=== PATIENT | male | born 1980 | race Caucasian/White ===

== ENCOUNTER 2022-03-08 13:38 | Emergency (ER) | payer BC, SELFPAY ==
[2022-03-08 13:46] VITALS: BP 140/89; PULSE 86; RESP 18; TEMP 36.7; O2SAT 100; BMI 22.6
--- NOTE | 2022-03-08 15:36 | ED_ITS ---
HPI - General Adult General Chief complaint: Unspecified Complaint, Adult Stated complaint: Nerve pain and weakness Time Seen by Provider: 03/08/22 15:04 History of Present Illness HPI narrative: This 42-year-old male comes in requesting a blood test if possible for checking for [place] virus. He states that he is having recurrent small individual lesions various places in his body that happened after having underlying pain in that area. He states that it started up on the left side of his face and it was thought to be shingles. It did spread across the midline and since then he has recovered from the initial findings but has various individual isolated lesions on his skin that are associated with pain. He states that he has been to a neurologist and he has been to a customer contact sales associate. He has not found any sufficient answer to what is going on. He states that he did take Valtrex with some temporary and partial relief in the past. He has had lab tests done and states that his sed rate and C reactive protein were negative. He also thinks that he had an DOROTA which was not positive for some kind of autoimmune condition. Related Data Home Medications Medication Instructions Recorded Confirmed hydroxyzine HCl 10 mg tablet mg 03/08/22 Previous Rx's Medication Instructions Recorded methylprednisolone 4 mg tablets in See Rx Instructions PO .COMPLEX 03/08/22 a dose pack (Medrol (Bill)) #21 ea valacyclovir 1 gram tablet 1,000 mg PO BID #20 tabs 03/08/22 (Valtrex) Allergies Allergy/AdvReac Type Severity Reaction Status Date / Time cephalexin Allergy Verified 03/08/22 13:52 Review of Systems Status of ROS: Reports: 10 or more systems reviewed and unremarkable except as noted in History and below Narrative: Constitutional: No fevers, no weight gain or loss. Eyes: No discharge. No vision changes. HENT: No congestion, no sore throat, no ear pain. Cardiovascular: No chest pain, no palpitations. Respiratory: No shortness of breath, no wheezes, no cough. Gastrointestinal: No abdominal pain, no vomiting, no diarrhea. Genitourinary: No dysuria, no hematuria. Musculoskeletal: Normal range of motion. Skin: Individual lesions with underlying pain and tingling occurring in various places of his body for several months. Neurological: No dizziness, weakness, sensory change, speech change. Endo/Heme/Allergies: No bruising or bleeding. No polydipsia. Pysch: no suicidality, no anxiety, no insomnia. All other systems reviewed and are negative. Exam Narrative: Exam Narrative: Constitutional: Well-developed, well-nourished, no acute distress. HEENT: Normocephalic, atraumatic. Neck: Normal range of motion. Nontender. Supple. Heart: Intact distal pulses. Lungs: No chest discomfort. No wheezes, rhonchi, or rales. Abdomen: Nontender. Back: Normal range of motion. Extremities: Normal range of motion. No injury. Skin: Intact. Warm. No erythema or pallor. Isolated individual non pustular and nonvesicular lesions on his arms and legs. Neurologic: No altered sensation. No weakness. Alert and oriented. Psychiatric: No suicidality. No anxiety or depression. No insomnia. Nursing notes and vitals signs are reviewed. Const: Vital Signs, click to edit/add: Vital Signs - 24 hr 03/08/22 13:46 Temperature 98.1 F Pulse Rate [Right Pulse Oximeter] 86 Respiratory Rate 18 Blood Pressure [Ri ght Upper Arm] 140/89 H Pulse Oximetry 100 Oxygen Delivery Me thod Room Air Course Vital Signs Vital signs: Initial Vital Signs Temperature 98.1 F 03/08/22 13:46 Temperature Source Temporal Artery Scan 03/08/22 13:46 Pulse Rate 86 03/08/22 13:46 Respiratory Rate 18 03/08/22 13:46 Blood Pressure 140/89 H 03/08/22 13:46 Blood Pressure Mean 106 03/08/22 13:46 Blood Pressure Position Sitting 03/08/22 13:46 Pulse Oximetry 100 03/08/22 13:46 Oxygen Delivery Method 03/08/22 13:46 Vital Signs Temperature 98.1 F 03/08/22 13:46 Pulse Rate 86 03/08/22 13:46 Respiratory Rate 18 03/08/22 13:46 Blood Pressure 140/89 H 03/08/22 13:46 Pulse Oximetry 100 03/08/22 13:46 Oxygen Delivery Method 03/08/22 13:46 Temperature 98.1 F 03/08/22 13:46 Pulse Rate 86 03/08/22 13:46 Respiratory Rate 18 03/08/22 13:46 Blood Pressure 140/89 H 03/08/22 13:46 Pulse Oximetry 100 03/08/22 13:46 Oxygen Delivery Method 03/08/22 13:46 Medical Decision Making MDM Narrative Medical decision making narrative: This patient is essentially requesting a PCR test for [place] virus if possible. I did check our lab options and did not find this specific test. The patient declined any lab test therefore. He is not presenting with any kind of emergent condition but is seeking some help for his symptoms which he has not found satisfactory conclusions with his visits to specialists. I did state there would be little harm in trying Valtrex and a steroid which may provide some relief and if so give a clue as to what may be causing his symptoms. He agrees to this plan. He does have a follow-up appointment with a specialist in the near future. Discharge Plan Discharge Clinical Impression: Dermatitis Patient Disposition: Home, Self-Care Condition: Stable Additional Instructions: Take medication as prescribed. Follow up with physician as scheduled. Return if worsening. Prescriptions: New valacyclovir [Valtrex] 1 gram tablet 1,000 mg PO BID Qty: 20 2RF methylprednisolone [Medrol (Bill)] 4 mg tablets,dose pack See Rx Instructions .ROUTE .COMPLEX Qty: 21 0RF Rx Instructions: orally per package directions No Action hydroxyzine HCl 10 mg tablet Stand Alone Forms: [employer] Info Instructions
--- OUTSIDE RECORDS SUMMARY | 2022-03-08 15:44 | XMS_ITS | Encounter Summary ---
:1980 Author Organization [place] Address [address] [place] [address]. [place] [address] Care Team Providers Name Role Phone Camilo Andres MD, Nick Go Primary Care Provider [phone] Reason for Visit Reason Onset Date Comments Call Back 10/26/2021 Encounter Details Date Type Department Care Team Description 10/26/2021 Telephone [facility] Infectious Mar shGirma MD Call Back Disease Clinic [id number] [place] [address] [phone] Social History Tobacco Use Types Packs/Day Years Used Date Never Assessed Sex Assigned at Date Recorded Not on file COVID-19 Exposure Response Date Recorded In the last 10 days, have you been in contact Unable to asse ss 10/26/2021 10:18 AM CDT with someone who was confirmed or suspected to have Coronavirus/COVID-19? documented as of this encounter Miscellaneous Notes Telephone Encounter - Girma Hummel MD - 11/02/2021 11:47 AM CDT I reviewed the chart of Mr. Sam Foss regarding his concern for recurrent Herpes Zoster (which is otherwise known as Shingles). There is a note in his chart from Dr. Hardy, an Infectious Disease physician in the [facility] system. I am happy to see the patient and give him my opinion. Based on Dr. Hardy's note, it is very likelythat I will reach the same conclusion that she did, that his symptoms are not actually caused by recurrent Shingles. However, I will make an independent assessment and hear him out. I will also consider alternative diagnoses. It is up to the patient if he would like to proceed with this appt or not. He should be prepared that I may say the same thing as Dr. Hardy, but I am happy to review his case with him if he would likeanother opinion. Girma Hummel MD, MS Infectious Disease Physician Telephone Encounter - Walt Stock - 10/26/2021 10:29 AM CDT [facility] Phone Message May a detailed message be left on voicemail: yes Reason for Call: Other: Patient called to schedule appointment for Herpes Virus. Per patient has seen 10-11 providers in the past for this diagnosis and wants a call back to confirm that Dr Hummel will be able to provide him the care for the virus before going ahead with the appointment. Please call back and advise, thank you. Action Taken: Message routed to: Other: ID Travel Screening: Not Applicable documented in this encounter Plan of Treatment Not on filedocumented as of this encounter Visit Diagnoses Not on filedocumented in this encounter Care Teams Corn Cooker Relationship Specialty Start Date End Date Nick Page Jr., MD PCP - General 08/09/[address] [place] [id number] documented as of this encounter
--- OUTSIDE RECORDS SUMMARY | 2022-03-08 15:44 | XMS_ITS | Encounter Summary ---
:1980 Author Organization [place] Address [address] [place] [address]. [place] [address] Care Team Providers Name Role Phone Camilo Andres MD, Nick Go Primary Care Provider [phone] Reason for Visit Reason Onset Date Comments *-*INCOMING RECORDS*-* 12/11/2021 Encounter Details Date Type Department Care Team Description 12/11/2021 PRE VISIT [facility] Girma Hummel, *-*IN COMING RECORDS*-* Infectious Disease MD Clinic [address] [phone] Social History Tobacco Use Types Packs/Day Years Used Date Never Smoker Smokeless Tobacco: Former User Alcohol Use Standard Drinks/Week Comments Not Currently 0 (1 standard drink = 0.6 oz pure alcoho l) Sex Assigned at Date Recorded Not on file documented as of this encounter Miscellaneous Notes Telephone Encounter - Melanie Kennedy - 12/04/2021 2:46 PM CDT RECORDS RECEIVED FROM: DATE RECEIVED: 12.10.2021 NOTES (Gather within 2 years) STATUS DETAILS OFFICE NOTE from referring provider OFFICE NOTE from other specialist Care Everywhere 10.30.2021 Carla Candelario MD?? [facility] DISCHARGE SUMMARY from hospital DISCHARGE REPORT from the ER LABS (any labs) Care Everywhere MEDICATION LIST Care Everywhere IMAGING (NEED IMAGES AND REPORTS) Osteomyelitis: Foot imaging Liver Abscess: Abdominal imaging Other (anything related to diagnoses documented in this encounter Plan of Treatment Not on filedocumented as of this encounter Visit Diagnoses Not on filedocumented in this encounter Care Teams Apparel Stock Checker Relationship Specialty Start Date End Date Nick Page Jr., MD PCP - General 08/09/[address] [place] [id number] documented as of this encounter
--- OUTSIDE RECORDS SUMMARY | 2022-03-08 15:44 | XMS_ITS | Clinical Summary ---
:1980 Author Organization [place] Address [address] [place] [address]. [place] [address] Care Team Providers Name Role Phone Camilo Andres MD, Nick Go Primary Care Provider [phone] Girma Hummel MD Unavailable Allergies Active Allergy Reactions Severity Noted Date Comments Cephalexin Hives 06/10/2017 Medications Medication Sig Dispensed Refills Start Date End Date Status hydrOXYzine (ATARAX) Take 10-20 mg by 0 07/17/2021 Active 10 MG tablet mouth ketoconazole (NIZORAL) APPLY 1-2X DAILY 0 12/04/2021 Active 2 % external cream TO AFFECTED TOENAILS Encounters Date Type Specialty Care Team Description 12/11/2021 Office Visit Infectious Diseases Girma Hummel, Shakeel cern about MD infectious dise ase without diagnos is (Primary Dx) 12/11/2021 Travel 12/11/2021 PRE VISIT Infectious Diseases Girma Hummel, *-* INCOMING RECORDS*-* from Last 3 Months Social History Tobacco Use Types Packs/Day Years Used Date Never Smoker Smokeless Tobacco: Former User Alcohol Use Standard Drinks/Week Comments Not Currently 0 (1 standard drink = 0.6 oz pure alcoho l) Sex Assigned at Date Recorded Not on file Last Filed Vital Signs Vital Sign Reading Time Taken Comments Blood Pressure 124/81 12/11/2021 3:04 PM CDT Pulse 72 12/11/2021 3:04 PM CDT Temperature - - Respiratory Rate - - Oxygen Saturation 96% 12/11/2021 3:04 PM CDT Inhaled Oxygen Concentration - - Weight 73.8 kg (162 lb 12.8 oz) 12/11/2021 3:04 PM CDT Height - - Body Mass Index - - Plan of Treatment Health Maintenance Due Date Last Done Comments ADVANCE CARE PLANNING 1980 ANNUAL REVIEW OF HM ORDERS 1980 PREVENTIVE CARE VISIT 1980 COVID-19 Vaccine (#1) 1980 HIV SCREENING 02/27/1996 HEPATITIS C SCREENING 1999 DTAP/TDAP/TD IMMUNIZATION (1 - 2006 Tdap) LIPID 02/27/2016 PHQ-2 (once per calendar year) 2021 INFLUENZA VACCINE (#1) 2022 HEPATITIS B IMMUNIZATION Aged Out No long er eligible based on patient's age to complete this topic IPV IMMUNIZATION Aged Out No longer eligi ble based on patient's age to complete this topic MENINGITIS IMMUNIZATION Aged Out No longe r eligible based on patient's age to complete this topic Pneumococcal Vaccine: Pediatrics Aged Out No longer eligible based on (0 to 5 Years) and At-Risk patie nt's age to complete this Patients (6 to 64 Years) topic Insurance Payer Benefit Plan / Subscriber ID Effective Dates Phone Addre ss Type Group BLUE PLUS BLUE PLUS [id number] 2018-Present [phone] [id number] [address]MO [address] [place] [address] Care Teams Virtual Recruiter Relationship Specialty Start Date End Date Nick Page Jr., MD PCP - General 08/09/08 [facility] [place], [place] [address] Girma Hummel MD Assigned Infectious Disease 12/22/21 [address] [facility] Provider [place], [place] [id number]
--- OUTSIDE RECORDS SUMMARY | 2022-03-08 15:44 | XMS_ITS | Encounter Summary ---
:1980 Author Organization [place] Address [address] [place] [address]. [place] [address] Care Team Providers Name Role Phone Camilo Andres MD, Nick Go Primary Care Provider [phone] Reason for Visit Reason Comments Consult Herpes Encounter Details Date Type Department Care Team Description 12/11/2021 Office Visit [facility] Girma Hummel Conce rn about Infectious Disease infectious disease Clinic [address] without diagnosis [address] [place] [address] (Primary Dx) [place] [phone] Social History Tobacco Use Types Packs/Day Years Used Date Never Smoker Smokeless Tobacco: Former User Alcohol Use Standard Drinks/Week Comments Not Currently 0 (1 standard drink = 0.6 oz pure alcoho l) Sex Assigned at Date Recorded Not on file COVID-19 Exposure Response Date Recorded In the last 10 days, have you been in contact with No / Unsu re 12/11/2021 2:50 PM CDT someone who was confirmed or suspected to have Coronavirus/COVID-19? documented as of this encounter Last Filed Vital Signs Vital Sign Reading Time Taken Comments Blood Pressure 124/81 12/11/2021 3:04 PM CDT Pulse 72 12/11/2021 3:04 PM CDT Temperature - - Respiratory Rate - - Oxygen Saturation 96% 12/11/2021 3:04 PM CDT Inhaled Oxygen Concentration - - Weight 73.8 kg (162 lb 12.8 oz) 12/11/2021 3:04 PM CDT Height - - Body Mass Index - - documented in this encounter Progress Notes Girma Hummel MD - 12/11/2021 3:00 PM CDT INFECTIOUS DISEASE CLINIC NOTE - in person REASON FOR VISIT: New patient, self referred. Concerns that infection is causing his various symptoms. The patient is most concerned about neurologic symptoms. HISTORY OF PRESENT ILLNESS: Sam Foss is a 41 yo man without any chronic illnesses. He was recently seen by Dr. Felecia Hardy for Infectious Disease consultation in the [facility] on 09/18/2021. He is seeking another Infectious Disease opinion today regarding an underlying infectious cause of his current symptoms. Mr. Foss tells me that he first noted tingling and burning around his jaw and lip about 4 years ago. He never saw an actual cold sore, but seemed to have these symptoms periodically and especially around times of stress. He tried topical Abreva and thought it helped some. He saw his PCP 06/10/2017 (note in Care Everywhere) who thought it sounded like a prodrome of herpes labialis albeit without the sore. He tried some valacyclovir and it seemed to help. This continued to happen occasionally over the years, but it was not too troublesome to Mr. Foss. He tells me that over 3 years, he maybe did 3courses of the valacyclovir. Now for the last 6 months or so, Mr. Foss feels this is much worse. He relates this to having COVID three times this pandemic, he thinks likely alpha, delta, and omicron variants. The last COVID infection was during May 2022, and he feels that a lot of his chronic symptoms started then. He recalls a burning rash and feeling like he was being electrocuted while sleeping. He has seen small pinkto red bumps scattered in many places on his body, arms, legs, trunk. VZV, HSV, and bacterial cultures done from a lesion 09/21/21 were all negative. The patient has seen Dr. Jahaira Hopson at [facility] in [place], [place]. . I do not have access to these records. Now an ongoing tingling and burning sensation is felt throughout the body. At times these sensationsare associated with weakness, and this is what is really worrying the patient. He is very worried that he has Multiple Sclerosis. He has been seen at [facility] by Dr. Brayan Cummins. I do not have access to these records, but the patient tells me that he had MRI of his cervical spine and his brain,as well as EMG, and these were all normal. He is worried that the MS cannot yet be seen on MRI, but will progress. Mr. Foss had some blood testing done that he shows me. It was done through a non-allopathic medicine site. Some tests came back for EBV and HHV-7. He also had a positive EBV Early Ag IgG Ab this 06/2021 done at [facility] (visible in Care Everywhere). No other EBV serology or PCR testing is seen. He has read that EBV can be associated with MS, so he thinks this is likely what is happening to him. The patient took some ivermectin in the past 3 days. He asks me if I think he should have IVIG therapy. I have reviewed and updated the patient's Past Medical History, Family History, and Social History. CURRENT MEDICATIONS: Current Outpatient Medications Medication ??? hydrOXYzine (ATARAX) 10 MG tablet ??? ketoconazole (NIZORAL) 2 % external cream No current facility-administered medications for this visit. ALLERGIES: Allergies Allergen Reactions ??? Cephalexin Hives REVIEW OF SYSTEMS: A full 12-point review of systems was obtained, pertinent positives and negativesas above. Physical Examination: VITAL SIGNS: BP 124/81 (BP Location: Right arm, Patient Position: Sitting, Cuff Size: Adult Regular) Pulse 72 Wt 73.8 kg (162 lb 12.8 oz) SpO2 96% GENERAL: No acute distress HEENT: No icterus or injection. Oropharynx moist and clear without lesions or exudate. NECK: Supple and nontender LYMPH: Some shotty lymphadenopathy felt in cervical, axillary and inguinal chains. Patient is thin and nodes are fairly easy to feel. Anteriorly along his neck on left side, there are two larger nodes next to each other, still freely moveable, not tender to the patient. LUNGS: Clear to ausculation bilaterally without any increased work of breathing HEART: Regular rate and rhythm and no murmur, gallop or rub ABDOMEN: Normoactive bowel sounds, soft, nontender, nondistended, no hepatosplenomegaly. EXTREMITIES: Warm and well perfused without clubbing, cyanosis, or edema SKIN: Scattered random small ~0.5cm pink to red nodules without an erythematous base. Patient pointsthem out on arms, legs, and trunk. NEURO: Awake, alert, no focal neurologic deficits. PSYCH: Affect normal. Speech fluent and appropriate. LABORATORY DATA: Reviewed. IMAGING: None available to me. ASSESSMENT: (Z71.1) Concern about infectious disease without diagnosis (primary encounter diagnosis) I counseled the patient extensively today. We discussed that I do not think it is any herpes virus that is causing his current symptoms. Not VZV, HSV, HHV-7, or EBV or any other herpes virus. I would not expect the neurologic symptoms he is describing of tingling, burning, and weakness throughout his entire body. I do not know why he is experiencing these symptoms. It is not an entity that I have learned about occurring after COVID infection, but the patient does correlate these symptoms with onset during his last COVID infection and continuing/progressing since. The bumps that the patient shows me are non-specific small pink or red solid nodules randomly scattered in various places around the body. They are pruritic. They do not have an erythematous base. Theyare not vesicular. This rash is not consistent with VZV or HSV. I thought actually about bed bugs and hypersensitivity. I asked the patient if his had any similar bumps. They do share a bed, and he thinks she has had a few occasionally, but not many. I expressed my concern to the patient regarding his recent use of ivermectin, and I discouraged him from seeking any medication or treatment without prescription and provider oversight. PLAN: - I plan to reach out to Dr. Hopson (Dermatology) and Dr. Cummins (Neurology) to seek their thoughts on Mr. Foss's case The patient asked if referrals within the [facility] [facility] system would be possible for Neurology. With normal MRIs and EMG, I am not sure what else Neurology would have to offer, but I will ask Dr. Cummins if he thinks this would be appropriate. - Patient asked for more EBV testing. I am hesitant to order EBV serology and PCR testing. As I shared with the patient, if serology and even PCR are positive, it would be very difficult to interpret these results in this otherwise healthy man. EBV reactivation is possible, and we could see a positive EBV Early Ag IgG Ab and a positive EBV PCR on blood if reactivation had occurred in the setting of other illness and/or stressor. However, I would not expect EBV reactivation to cause the symptoms thatMr. Foss is describing. I will be in touch with the patient after I am able to discuss the case with Dr. Hopson and Dr. Cummins. Girma Hummel MD, MS Infectious Disease I spent 65 minutes in the care of the patient on the day of service. 55 minutes in the room for history, examination, and counseling. 10 minutes on chart review and care coordination. documented in this encounter Nursing Notes Juan Miguel Wilson MA - 12/11/2021 3:00 PM CDT Chief Complaint Patient presents with ??? Consult Herpes Blood pressure 124/81, pulse 72, weight 73.8 kg (162 lb 12.8 oz), SpO2 96 %. Juan Miguel Wilson on 12/11/2021 at 3:07 PM documented in this encounter Plan of Treatment Not on filedocumented as of this encounter Visit Diagnoses Diagnosis Concern about infectious disease without diagnosis - Primary Person with feared complaint in whom no diagnosis was made documented in this encounter Care Teams Parts Designer Relationship Specialty Start Date End Date Nick Page Jr., MD PCP - General 08/09/[address] [place] [phone] documented as of this encounter
--- OUTSIDE RECORDS SUMMARY | 2022-03-08 15:44 | XMS_ITS | Clinical Summary ---
:1980 Author Organization [employer] [facility] [place] [address] Care Team Providers Name Role Phone Carla Candelario MD Primary Care Provider [phone] Allergies Active Allergy Reactions Severity Noted Date Comments Cephalexin Hives 06/10/2017 Medications Medication Sig Dispensed Refills Start Date End Date Status acyclovir (ZOVIRAX) 800 Take 1 Tablet 25 Tablet 1 07/17/2021 Active mg tabletIndications: (800 mg) by History of shingles mouth 5 times daily. Use as needed for flares x 5 days. hydrOXYzine HCL Take 1-2 Tablets 180 Tablet 1 07/17/2021 Active (ATARAX) 10 mg (10-20 mg) by tabletIndications: mouth 4 times Environmental allergies daily if needed (allergy symptoms). 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 Muscle spasm of back 01/15/2019 Encounters Date Type Specialty Care Team Description 02/13/2022 Orders Only Scanner <No scans attac hed> from Last 3 Months Family History Medical History Relation Name Comments Allergies Father mold Asthma Father Eczema Father Rheum arthritis Paternal Grandmother Crohn's disease Paternal Uncle Eczema Son Relation Name Status Comments Father Alive Mother Alive Paternal Grandmother Paternal Uncle Son Social History Tobacco Use Types Packs/Day Years Used Date Never Smoker Smokeless Tobacco: Never Used Tobacco Cessation: Counseling Given: Yes Alcohol Use Standard Drinks/Week Comments Yes 0 (1 standard drink = 0.6 oz pure alcoho l) Sex Assigned at Date Recorded Not on file Obstetrics History Last Filed Vital Signs Vital Sign Reading Time Taken Comments Blood Pressure 134/86 10/30/2021 1:29 PM CDT Pulse 74 10/30/2021 1:29 PM CDT Temperature 36.4 ??C (97.5 ??F) 06/06/2021 1:10 PM BREAKER MECHANIC Respiratory Rate 16 10/30/2021 1:29 PM CDT Oxygen Saturation 98% 06/06/2021 1:10 PM BREAKER MECHANIC Inhaled Oxygen Concentration - - Weight 73.8 kg (162 lb 11.2 oz) 10/30/2021 1:29 PM CDT Height 182.9 cm (6') 06/12/2021 10:48 AM BREAKER MECHANIC Body Mass Index 22.07 06/12/2021 10:48 AM BREAKER MECHANIC Plan of Treatment Health Maintenance Due Date Last Done Comments COVID-19 vaccine series (#1) 1980 Tdap 02/27/1992 Tetanus booster 2001 Lipids for age 35-44 02/27/2016 Influenza for age 9-49 01/31/2022 BMI (ht and wt on same day) for 06/12/2022 06/12/2021, 06/02, age 18+ 03/12/2019, Additional history exists Depression screening for age 12+ 10/30/2022 10/30/2021, , 06/10/2017 Hepatitis C screening for age Completed 06/19/2021 18-79 Procedures Procedure Name Priority Date/Time Associated Diagnosis Comme nts SCAN-ELECTROMYOGRAM 02/13/2022 12:00 AM R esults for this EMG CDT procedure are i n the results section. from Last 3 Months Results SCAN-ELECTROMYOGRAM EMG (02/13/2022 12:00 AM CDT) Narrative This result has an attachment that is no t available. Scanner OTHER from Last 3 Months Insurance Payer Benefit Plan / Subscriber ID Effective Dates Phone Addre ss Type Group [employer] [place] [employer] [id number] 2018-Present [address] [address] [place] [address] Care Teams Cone Baker Machine Relationship Specialty Start Date End Date Carla Candelario MD PCP - General Family Practice 10/30/[address] [place] [address] [place] [id number]
--- OUTSIDE RECORDS SUMMARY | 2022-03-08 15:44 | XMS_ITS | Encounter Summary ---
:1980 Author Organization [facility] Address [address] [place] [address]. [place] [address] Care Team Providers Name Role Phone Camilo Andres MD, Nick Go Primary Care Provider Encounter Details Date Type Department Care Team Description 12/11/2021 Travel Social History Tobacco Use Types Packs/Day Years [...] have Coronavirus/COVID-19? documented as of this encounter Plan of Treatment Not on filedocumented as of this encounter Visit Diagnoses Not on filedocumented in this encounter Care Teams Chronic Disease Manager Relationship Specialty Start Date End Date Nick Page Jr., MD PCP - General 08/09/[address] [place] [id number] documented as of this encounter
--- OUTSIDE RECORDS SUMMARY | 2022-03-08 15:44 | XMS_ITS | Encounter Summary ---
:1980 Author Organization [facility] Address [facility] [place] [address] Care Team Providers Name Role Phone Camilo Andres MD, Nick Go Primary Care Provider [phone] Encounter Details Date Type Department Care Team Description 10/26/2021 Travel Social History Tobacco Use Types Packs/Day [...] on filedocumented in this encounter Care Teams Ski Edge Painter Relationship Specialty Start Date End Date Nick Page Jr., MD PCP - General 08/09/08 [facility] [place], [place] [id number] documented as of this encounter
--- OUTSIDE RECORDS SUMMARY | 2022-03-08 15:45 | XMS_ITS | Encounter Summary ---
:1980 Author Organization [facility] Address [address] [place] [address] Care Team Providers Name Role Phone Elsewhere, Pcp Primary Care Provider Unavailable Reason for Visit Reason Comments Communication Needs med refill on hydroxyz ine 10mg and valacyclovir. Sent to [facility] in [place]. Markell queen was to be seen 08/29/[address] Hanks had to leave. Encounter Details Date Type Department Care Team Description 08/29/2017 Clinical Department of Janie Hanks Communication (Needs Communication Family MedicineDarien med refill on [facility], [address] hydroxyzi ne 10mg and in [facility], [address] valacyclovir. Sent [place], [place] to [facility] [address] [place] [address] [facility] in [place]. [place], [place] [phone] [place] [phone] (Fax) seen 08/29/2017 and [phone] Dr Hanks had to leave. ) Social History Tobacco Use Types Packs/Day Years Used Date Smoking Tobacco: Never Smokeless Tobacco: Never Alcohol Use Standard Drinks/Week Comments No 0 (1 standard drink = 0.6 oz pure alcoho l) Sex Assigned at Date Recorded Not on file documented as of this encounter Miscellaneous Notes Telephone Encounter - Tiara Hernández M.D. - 08/29/2017 4:52 PM CDT I have sent a prescription of hydroxyzine 10 mg to her pharmacy([facility]) Tiara Hernández MD Telephone Encounter - Adry Vang RJennyNJenny - 08/29/2017 3:27 PM CDT Please fill the hydroxyzine for Carlinflower's patient, Since he isn't sure of the dose he will have his teresa dr. Fill the valcyclovir. Telephone Encounter - Sharon Hood - 08/29/2017 2:40 PM CDT Needs med refill on hydroxyzine 10mg and valacyclovir. Sent to [facility] in [place]. Patient was to be seen 08/29/[address] Hanks had to leave. documented in this encounter Plan of Treatment Not on filedocumented as of this encounter Visit Diagnoses Not on filedocumented in this encounter Care Teams Tractor Operator Battery Relationship Specialty Start Date End Date Elsewhere, Pcp PCP - General Family Medicine 06/30/17 documented as of this encounter
--- OUTSIDE RECORDS SUMMARY | 2022-03-08 15:45 | XMS_ITS | Encounter Summary ---
:1980 Author Organization [facility] Address [address] [place] [address] Care Team Providers Name Role Phone Elsewhere, Pcp Primary Care Provider Unavailable Encounter Details Date Type Department Care Team Description 06/30/2017 Abstract Department of [facility] Internal Provider , [facility] Medicine in [place], [place] [address] [place] [address] Social History Tobacco Use Types Packs/Day Years Used Date Smoking Tobacco: Never Smokeless Tobacco: Never Alcohol Use Standard Drinks/Week Comments No 0 (1 standard drink = 0.6 oz pure alcoho l) Sex Assigned at Date Recorded Not on file documented as of this encounter Plan of Treatment Not on filedocumented as of this encounter Visit Diagnoses Not on filedocumented in this encounter Care Teams Community Health Representative Relationship Specialty Start Date End Date Elsewhere, Pcp PCP - General Family Medicine 06/30/17 documented as of this encounter
--- OUTSIDE RECORDS SUMMARY | 2022-03-08 15:45 | XMS_ITS | Encounter Summary ---
:1980 Author Organization [facility] Address [address] [place] [address] Care Team Providers Name Role Phone Elsewhere, Pcp Primary Care Provider Unavailable Encounter Details Date Type Department Care Team Description 07/31/2018 Clinical Communication Department of [facility], Pcp Medicine, [facility], in [place], [place] [address], [place] [address] [facility] [phone] Social History Tobacco Use Types Packs/Day Years Used Date Smoking Tobacco: Never Smokeless Tobacco: Never Alcohol Use Standard Drinks/Week Comments No 0 (1 standard drink = 0.6 oz pure alcoho l) Sex Assigned at Date Recorded Not on file documented as of this encounter Miscellaneous Notes Telephone Encounter - Kayleigh Freeman, L.P.N. - 07/31/2018 10:05 AM CST Attempt to contact patient. No answer, left message to return call to clinic. UI DEVELOPER Telephone Encounter - Nguyen Cordero - 07/31/2018 8:33 AM CST Reason for Communication: Patient is returning call Current Can Nursing/Provider leave a detailed message: yes Did the patient refuse triage through Nurse line? (for symptom based concerns)na Action Needed: Please call patient back Name of Medication (if relevant): Valtrex UI DEVELOPER documented in this encounter Plan of Treatment Not on filedocumented as of this encounter Visit Diagnoses Not on filedocumented in this encounter Care Teams Line And Frame Poler Relationship Specialty Start Date End Date Elsewhere, Pcp PCP - General Family Medicine 06/30/17 documented as of this encounter
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
--- OUTSIDE RECORDS SUMMARY | 2022-03-08 15:45 | XMS_ITS | Encounter Summary ---
:1980 Author Organization [facility] Address [address] [place] [address] Care Team Providers Name Role Phone Elsewhere, Pcp Primary Care Provider Unavailable Reason for Visit Reason Comments Weakness - Generalized Encounter Details Date Type Department Care Team Description 12/14/2021 Emergency [facility] Kirstin, Alcon E, Headac he Unspecified (Primary Dx); Emergency Department M.D., M.P.H. Pain Generalized; [address] [facility] [address] [place] [phone] Social History Tobacco Use Types Packs/Day Years Used Date Smoking Tobacco: Never Smokeless Tobacco: Never Alcohol Use Standard Drinks/Week Comments No 0 (1 standard drink = 0.6 oz pure alcoho l) Sex Assigned at Date Recorded Not on file documented as of this encounter Last Filed Vital Signs Vital Sign Reading Time Taken Comments Blood Pressure 147/75 12/14/2021 3:58 PM CDT Pulse 76 12/14/2021 3:58 PM CDT Temperature 36.7 ??C (98.1 ??F) 12/14/2021 11:30 AM CDT Respiratory Rate 18 12/14/2021 11:30 AM CDT Oxygen Saturation 98% 12/14/2021 3:58 PM CDT Inhaled Oxygen Concentration - - Weight 75.9 kg (167 lb 5.3 oz) 12/14/2021 11:27 AM CDT Height - - Body Mass Index 22.66 09/12/2017 1:31 PM CDT documented in this encounter Discharge Instructions Discharge InstructionsMadsen, Alcon E, M.D., M.P.H. - 12/14/2021 3:44 PM CDT You were seen for a number symptoms that have been ongoing over the past 6-7 months with acute worsening including headache as well as radiating burning pain initially in year left upper and lower extremities and now also on your right side. You report difficulty ambulating mainly due to left-sided weakness. Your neurological exam is normal and fortunately the head CT is also normal. All your laboratory testing is reassuring here. I recommend that you follow-up with your primary care physician and the care team that you have recently seen. As we have agreed I will send a referral to our general internal medicine physicians. Theywill review your records and contact you. As we have discussed I cannot tell you if and when you will get an appointment with medicine. AttachmentsThe following attachments cannot be sent through Care Everywhere.Pain Without a Known Cause (Czech)documented in this encounter Medications at Time of Discharge Medication Sig Dispensed Refills Start Date End Date omega-3 fatty Take 2 g by mouth 2 0 acids-fish oil (two) times a day. 300-1,000 mg capsule UNABLE TO FIND Take by mouth 2 (two) 0 times a day. Med Name: Ultraflamex - contains tumeric and alexander - two scoops twice daily UNABLE TO FIND Take by mouth as needed. 0 Med Name: dehyst documented as of this encounter ED Notes Alcon Fulton M.D., M.P.H. - 12/14/2021 11:54 AM CDT SUBJECTIVE CHIEF COMPLAINT/REASON FOR VISIT Weakness - Generalized HISTORY OF PRESENT ILLNESS Patient presents for evaluation of tightness of his muscles in predominantly the left side but now also starting in the right side. He has difficulty ambulating and is be experiencing zinging seen painfrom his back and down his extremities. No fevers or skin rashes. REVIEW OF SYSTEMS Constitutional: Positive for fatigue. Negative for chills and fever. HENT: Negative for trouble swallowing. Eyes: Negative for visual disturbance. Respiratory: Negative for cough and shortness of breath. Cardiovascular: Negative for chest pain, palpitations and leg swelling. Gastrointestinal: Negative for abdominal pain, diarrhea, nausea and vomiting. Genitourinary: Negative for dysuria and frequency. Musculoskeletal: Positive for back pain, gait problem, myalgias and extremity pain. Negative for joint swelling. Skin: Positive for rash. Neurological: Positive for weakness. Negative for numbness, headaches and loss of balance. Psychiatric/Behavioral: Negative for behavioral problems, substance abuse and suicidal ideas. OBJECTIVE Initial Vitals Temperature Pulse Rate Heart Rate Resp Rate Blood Pressure SpO2 12/14/21 1130 12/14/21 1130 -- 12/14/21 1130 12/14/21 1130 12/14/21 1130 36.7 ??C 106 18 148/80 99 % Pain Score 12/14/21 1131 6 PHYSICAL EXAMINATION Constitutional: Nursing note and vitals reviewed. No distress. HENT: Mouth/Throat: Mucous membranes are moist. No posterior oropharyngeal erythema. Neck: Neck supple. Cardiovascular: Normal rate and regular rhythm. Capillary refill: takes less than 3 seconds Pulmonary/Chest: Breath sounds normal. Abdominal: Soft. exhibits no distension. There is no abdominal tenderness. There is no rebound and no guarding. Musculoskeletal: General: No tenderness or edema. Cervical back: Neck supple. Neurological: Alert. He has normal sensation, normal strength and cranial nerves II through XII intact. Normal speech. Skin: Skin is warm and intact. Psychiatric: He has a normal mood and affect. Behavior is normal. ASSESSMENT/PLAN IMPRESSION AND PLAN Unclear etiology of zinging pain and tightness of muscles. Has undergone extensive workup elsewhere.Continues having neuropathic symptoms that initially were thought to be related to possible shingles. He has had significant symptoms that are very concerning to him and has seen neurology (normal MRI,EMGs, vasculitis/autoimmune workup, etc upon review of labs, notes). Was seen by dermatology, who biopsied one of the lesions and did not think it was shingles. Was also seen by infectious disease elsewhere, who wondered if this wasn't foliculitis and recommended we stop prescribing acyclovir without a biopsy showing zoster. His neurological exam here is normal as it has been during prior examinations elsewhere. He is ambulating with a slight limp. Workup here within tired normal labs including inflammatory markers. Urine normal. Head CT without acute findings. Were still no clear etiology his symptoms. Is not requiring inpatient workup for his symptoms. He is somewhat frustrated by this as it is very concerning to him. He is a chiropractor and ordered labs on himself. I am not familiar with the testing type Neural Zoomer Plus test with [facility]. These came back positive for Demylenating antigens- anti-MAG, anti-CV2, IGG and IgA positive for EBNA, EBV and HHV-7. I reviewed previous medical records including Lab results, EKG images/reports, Radiology images/report and Documentation from previous visits. I personally reviewed the lab result(s) and my interpretation is normal. I personally reviewed the radiology image(s) and reviewed the radiology report(s). The Radiology exam interpretation(s) is/are normal. ED Course as of 12/25/217 FriDec 14, [address] Head without IV Contrast FINDINGS: No acute intracranial abnormalities. No evidence of mass, infarct or hemorrhage. Paranasal sinuses, mastoid air cells and middle ear cavities are clear. 6 mm right frontal convexity calcification may represent a small exostosis or calcified meningioma. IMPRESSION: Normal CT of the head. 1534 Basic Metabolic Panel: Potassium, P 3.8 Sodium, P 140 Chloride, P 102 Bicarbonate, P 26 Anion Gap, P 12 BUN (Blood Urea Nitrogen), P 13 Creatinine, P 0.80 eGFR-Black/ >90 eGFR Non-Black/ >90 Calcium, Total, P 9.8 Glucose, P 96 Normal BMP 1535 CBC with Differential, Blood(!): Hemoglobin 14.9 Hematocrit 43.8 Erythrocytes 4.69 MCV 93.4 RBC Distrib Width 11.1(!) Platelet Count 204 White Blood Cell Count 7.0 Neutrophils 4.57 Lymphocytes 1.59 Monocytes 0.40 Eosinophils 0.33 Basophils 0.08 1535 C-Reactive Protein (CRP), S: <3.0 1535 Sedimentation Rate, B: 5 1535 Dipstick, POCT, Urine: Glucose, POCT, U Negative Ketone, POCT, U Negative Specific Oran, POCT, U 1.010 Blood, POCT, U Negative pH, POCT, Urine 7.0 Protein, POCT, U Negative Nitrites, POCT, U Negative Leukocytes, POCT, U Negative Final Diagnoses: as of 12/25/21 0437 Headache Unspecified Pain Generalized Weakness General Alcon Fulton M.D., M.P.H. 12/25/21 0447 documented in this encounter Plan of Treatment Not on filedocumented as of this encounter Procedures Procedure Name Priority Date/Time Associated Comments Diagnosis CT HEAD WITHOUT IV RAD - Semiurgent 12/14/2021 1:56 Re sults for CONTRAST (Fast; most ED PM CDT this procedur e patients; some are in the inpatients) results section. HC URINALYSIS AUTO Routine 12/14/2021 1:42 Result s for WO MICRO PM CDT this procedure are in the results section. DIPSTICK, U STAT 12/14/2021 1:38 Results for PM CDT this procedure are in the results section. MICROSCOPIC STAT 12/14/2021 1:38 Results for AUTOMATED PM CDT this procedure are in the results section. PH, U STAT 12/14/2021 1:38 Results for PM CDT this procedure are in the results section. OSMOLALITY, U STAT 12/14/2021 1:38 Results for PM CDT this procedure are in the results section. URINALYSIS WITH STAT 12/14/2021 1:38 Results f or MICROSCOPIC PM CDT this procedure are in the results section. LACTATE, POCT, B Routine 12/14/2021 1:26 Results for PM CDT this procedure are in the results section. LACTATE, POCT, B STAT 12/14/2021 1:24 Results for PM CDT this procedure are in the results section. SEDIMENTATION RATE, STAT 12/14/2021 1:24 Resul ts for B PM CDT this procedure are in the results section. CBC WITH STAT 12/14/2021 1:24 Results for DIFFERENTIAL, B PM CDT this procedu re are in the results section. C-REACTIVE PROTEIN STAT 12/14/2021 1:24 Result s for (CRP), S/P PM CDT this procedure are in the results section. BASIC METABOLIC STAT 12/14/2021 1:24 Results f or PANEL, S/P PM CDT this procedure are in the results section. documented in this encounter Results CT Head without IV Contrast (12/14/2021 1:56 PM CDT) Anatomical Region Laterality Modality Head, Neuroradiology RST LOS, N/A Computed T omography, Computed Neuroradiology ARZ LOS, Neuroradiology T omography FLA LOS Specimen (Source) Anatomical Collection Method Collection Time Re ceived Time Location / / Volume Laterality 12/14/2021 1:56 PM CDT Impressions 12/14/2021 2:[address] of the head. Narrative 12/14/2021 2:17 PM CDT EXAM: CT HEAD WITHOUT IV CONTRAST COMPARISON: None FINDINGS: No acute intracranial abnormal ities. No evidence of mass, infarct or hemorrhage. Paranasal sinuses, mastoid air cells and middle ea r cavities are clear. 6 mm right frontal convexity calcification may represent a small exos tosis or calcified meningioma. Procedure Note Vicente Nick M.D. - 12/14/2021Formattin g of this note might be different from the original. EXAM: CT HEAD WITHOUT IV CONTRAST COMPARISON: None FINDINGS: No acute intracranial abnormal ities. No evidence of mass, infarct or hemorrhage. Paranasal sinuses, mastoid air cells and middle ea r cavities are clear. 6 mm right frontal convexity calcification may represent a small exos tosis or calcified meningioma. IMPRESSION: Normal CT of the head. Alcon Fulton M.D., M.P.H. IMG CT PROCEDURES Dipstick, POCT, Urine (12/14/2021 1:42 PM CDT) [facility] Method Time Signature Glucose, POCT, Negative Negative 12/14/2021 PCED U mg/dL 1:44 PM CDT Ketone, POCT, Negative Negative 12/14/2021 PCED U mg/dL 1:44 PM CDT Specific 1.010 1.005 - 12/14/2021 PCED Oran, POCT, 1.030 1:44 PM CDT U Blood, POCT, U Negative Negative 12/14/2021 PCED 1:44 PM CDT pH, POCT, 7.0 5.0 - 8.0 12/14/2021 PCED Urine 1:44 PM CDT Protein, POCT, Negative Negative 12/14/2021 PCED U mg/dL 1:44 PM CDT Nitrites, Negative Negative 12/14/2021 PCED POCT, U 1:44 PM CDT Leukocytes, Negative Negative 12/14/2021 PCED POCT, U 1:44 PM CDT Specimen Anatomical Collection Method Collection Time Receive d Time (Source) Location / / Volume Laterality Urine 12/14/2021 1:42 PM 2 1:44 CDT PM CDT Unknown Provider LAB POCT ORDERABLES - DEVICE Performing Organization Address City/State/ZIP Code Phon e Number POC RST [facility] [address] [place] [address] OUTPATIENT LABS PCED [facility] [place] [address] [facility] 200 [facility] Dipstick, Urine (12/14/2021 1:38 PM CDT) Patholo gist Method Time Signature Hemoglobin, Negative Negative 12/14/2021 DTL QL, U 3:02 PM CDT Leukocyte Negative Negative 12/14/2021 DTL Esterase, U 3:02 PM CDT Nitrite, U Negative Negative 12/14/2021 DTL 3:02 PM CDT Ketone, U Negative Negative 12/14/2021 DTL mg/dL 3:02 PM CDT Glucose, U Negative Negative 12/14/2021 DTL mg/dL 3:02 PM CDT Specimen Anatomical Collection Method Collection Time Receive d Time (Source) Location / / Volume Laterality Urine 12/14/2021 1:38 PM 2 2:15 CDT PM CDT Alcon Fulton M.D., M.P.H. LAB URINE ORDERABLES Performing Organization Address City/State/ZIP Code Phon e Number [facility] - [facility] [address] [place], [place] [address] [place] [address] [facility] [address] [facility] pH, Urine (12/14/2021 1:38 PM CDT) P athologist Signature pH, U 6.6 4.5 - 8.0 12/14/2021 2:38 DTL PM CDT Specimen Anatomical Collection Method Collection Time Receive d Time (Source) Location / / Volume Laterality Urine 12/14/2021 1:38 PM 2 2:15 CDT PM CDT Alcon Fulton M.D., M.P.H. LAB URINE ORDERABLES Performing Organization Address City/[facility]/ZIP Code Phon e Number [facility] - [address] Osmolality, Urine (12/14/2021 1:38 PM CDT) P athologist Signature Osmolality, U 255 150 - 1150 12/14/2021 DTL mOsm/kg 2:38 PM CDT Specimen Anatomical Collection Method Collection Time Receive d Time (Source) Location / / Volume Laterality Urine 12/14/2021 1:38 PM 2 2:15 CDT PM CDT Alcon Fulton M.D., M.P.H. LAB URINE ORDERABLES Performing Organization Address [facility] Phon e Number [facility] - [address] Microscopic Automated (12/14/2021 1:38 PM CDT) P athologist Signature Microscopy Normal 12/14/2021 3:02 DTL PM CDT Specimen Anatomical Collection Method Collection Time Receive d Time (Source) Location / / Volume Laterality Urine 12/14/2021 1:38 PM 2 2:15 CDT PM CDT Alcon Fulton M.D., M.P.H. LAB URINE ORDERABLES Performing Organization Address City/[facility] Phon e Number [facility] - [address] [place], [place] [address] Urinalysis with Microscopic: Urine, Midstream (12/14/2021 1:38 PM CDT) Patholo gist Method Time Signature Source Urine, Urine, 12/14/2021 DTL Midstream 2:15 PM CDT Color, U Yellow 12/14/2021 DTL 2:15 PM CDT Clarity, U Clear 12/14/2021 DTL 2:15 PM CDT Protein, U 4 <26 mg/dL 12/14/2021 DTL 2:52 PM CDT Protein/Osmol 0.16 <0.42 12/14/2021 DTL ality ratio 2:52 PM CDT Predicted 24 161 mg/24 h 12/14/2021 DTL Hr Protein 2:52 PM CDT Predicted 51-508 mg/24 h 12/14/2021 DTL Range 2:52 PM CDT Specimen Anatomical Collection Method Collection Time Receive d Time (Source) Location / / Volume Laterality Urine (Urine, 12/14/2021 1:38 PM 12/15/19 22 2:15 Midstream) CDT PM CDT Alcon Fulton M.D., M.P.H. LAB URINE ORDERABLES Performing Organization Address City/[facility] Phon e Number [facility] - [address] [place] [address] [place] [address] [facility] [address] [facility] Lactate, POCT (12/14/2021 1:26 PM CDT) P athologist Signature Lactate, POCT 0.91 0.50 - 12/14/2021 PCLX 2.20 1:36 PM CDT mmol/L Sample Site, Venstick 12/14/2021 PCLX POCT 1:36 PM CDT Specimen Anatomical Collection Method Collection Time Receive d Time (Source) Location / / Volume Laterality Blood 12/14/2021 1:26 PM 2 1:36 CDT PM CDT Unknown Provider LAB POCT ORDERABLES - DEVICE Performing Organization Address City/[facility] Phon e Number POC [facility] [address] [place] [address] [facility] [place] [address] [facility] [address] [facility] Lactate, POCT (12/14/2021 1:24 PM CDT) Analysis Performed At Patho logist Time Signature Lactate, POCT Collected DEFAULT 12/14/2021 SMLX 1:24 PM CDT Specimen Anatomical Collection Method Collection Time Receive d Time (Source) Location / / Volume Laterality Blood (Blood, 12/14/2021 1:24 PM 07/15/20 22 1:24 Venous) CDT PM CDT Alcon Fulton M.D., M.P.H. LAB POCT ORDERABLES - DEVICE Performing Organization Address [facility] Phon e Number [facility] - [address] SMLX [address] [facility] Sedimentation Rate (12/14/2021 1:24 PM CDT) Analysis Performed At Patho logist Time Signature Sedimentation 5 2 - 12 12/14/2021 DTL Rate, B mm/h 2:39 PM CDT Specimen Anatomical Collection Method Collection Time Receive d Time (Source) Location / / Volume Laterality Blood (Blood, 12/14/2021 1:24 PM 12/15/19 1:38 Venous) CDT PM CDT Alcon Fulton M.D., M.P.H. LAB BLOOD ADD-ON Performing Organization Address City/[facility] Phon e Number [facility] - [address] CRP (C-Reactive Protein) (12/14/2021 1:24 PM CDT) P athologist Signature C-Reactive <3.0 <=8.0 mg/L 12/14/2021 DTL Protein (CRP), 2:18 PM CDT S Specimen Anatomical Collection Method Collection Time Receive d Time (Source) Location / / Volume Laterality Blood (Blood, 12/14/2021 1:24 PM 12/15/19 1:52 Venous) CDT PM CDT Alcon Fulton M.D., M.P.H. LAB BLOOD ADD-ON Performing Organization Address City/[facility] Phon e Number [facility] - [address] Basic Metabolic Panel (12/14/2021 1:24 PM CDT) P athologist Signature Potassium, P 3.8 3.6 - 5.2 12/14/2021 STMA mmol/L 2:07 PM CDT Sodium, P 140 135 - 145 12/14/2021 STMA mmol/L 2:07 PM CDT Chloride, P 102 98 - 107 12/14/2021 ST[facility] mmol/L 2:07 PM CDT Bicarbonate, P 26 22 - 29 12/14/2021 [facility] mmol/L 2:07 PM CDT Anion Gap, P 12 7 - 15 12/14/2021 [facility] 2:07 PM CDT BUN (Blood Urea 13 8 - 24 12/14/2021 [facility] Nitrogen), P mg/dL 2:07 PM CDT Creatinine 0.80 0.74 - 12/14/2021 [facility] 1.35 mg/dL 2:07 PM CDT eGFR-Black/Afric >90 >=60 12/14/2021 [facility] an Grenadian mL/min/BSA 2:07 PM CDT Comment: ----ADDITIONAL INFORMATION---- Estimated GFR calculated using the 2009 CKD_EPI creatinine equation. eGFR Non-Black/ >90 >=60 mL/min/BSA 12/14/2021 2:07 PM CDT STMA Comment: ----ADDITIONAL INFORMATION---- Estimated GFR calculated using the 2009 CKD_EPI creatinine equation. Calcium, Total, P 9.8 8.6 - 10.0 mg/dL 12/14/2021 2:07 PM CDT STMA Glucose, P 96 70 - 140 mg/dL 12/14/2021 2:07 PM CDT S TMA Specimen Anatomical Collection Method Collection Time Receive d Time (Source) Location / / Volume Laterality Blood (Blood, 12/14/2021 1:24 PM 12/15/19 1:30 Venous) CDT PM CDT Alcon Fulton M.D., M.P.H. LAB BLOOD ADD-ON Performing Organization Address City/State/ZIP Code Phon e Number [facility] - [address] [place], [place] [address] [facility] [place] [address] [facility] [address] (ABNORMAL) CBC with Differential, Blood (12/14/2021 1:24 PM CDT) [facility] Method Time Signature Hemoglobin 14.9 13.2 - 12/14/2021 ST[facility] 16.6 g/dL 1:33 PM CDT Hematocrit 43.8 38.3 - 12/14/2021 [facility] 48.6 % 1:33 PM CDT Erythrocytes 4.69 4.35 - 12/14/2021 [facility] 5.65 1:33 PM CDT x10(12)/L MCV 93.4 78.2 - 12/14/2021 [facility] 97.9 fL 1:33 PM CDT RBC Distrib Width 11.1 (L) 11.8 - 12/14/2021 ST[facility] 14.5 % 1:33 PM CDT Platelet Count 204 135 - 317 12/14/2021 [facility] x10(9)/L 1:33 PM CDT Leukocytes 7.0 3.4 - 9.6 12/14/2021 [facility] x10(9)/L 1:33 PM CDT Neutrophils 4.57 1.56 - 12/14/2021 [facility] 6.45 1:33 PM CDT x10(9)/L Lymphocytes 1.59 0.95 - 12/14/2021 ST[facility] 3.07 1:33 PM CDT x10(9)/L Monocytes 0.40 0.26 - 12/14/2021 [facility] 0.81 1:33 PM CDT x10(9)/L Eosinophils 0.33 0.03 - 12/14/2021 ST[facility] 0.48 1:33 PM CDT x10(9)/L Basophils 0.08 0.01 - 12/14/2021 ST[facility] 0.08 1:33 PM CDT x10(9)/L Specimen Anatomical Collection Method Collection Time Receive d Time (Source) Location / / Volume Laterality Blood (Blood, 12/14/2021 1:24 PM 12/15/19 22 1:30 Venous) CDT PM CDT Alcon Fulton M.D., M.P.H. LAB BLOOD ADD-ON Performing Organization Address City/State/ZIP Code Phon e Number [facility] - [address] [place], [place] [address] [place] [address] [facility] [address] documented in this encounter Visit Diagnoses Diagnosis Headache Unspecified - Primary Pain Generalized Weakness General documented in this encounter Administered Medications Inactive Administered Medications - up to 3 most recent administrations Medication Order MAR Action Action Date Dose Rate Site acetaminophen tablet 1,000 mg Given 12/14/2021 2:05 PM CDT 1,000 mg (TYLENOL) 1,000 mg, oral, Once as needed, mild pain or score 1-3 of 10, moderate pain or score 4-6 of 10, severe pain or score 7-10 of 10, fever, temperature greater than 38 C, Starting on Fri12/14/21 at 1402, For 1 dose documented in this encounter Active and Recently Administered Medications Times are shown in CDT. PRN Medication Order 12/12/2021 12/13/2021 12/14/2021 acetaminophen tablet 1,000 mg (TYLENOL) (COMPLETED) 1405 (Given - Provider: Charisse Gomez R.N.) 1,000 mg, oral, Once as needed, mild susana n or score 1-3 of 10, moderate pain or score 4-6 of 10, severe pain or score 7-10 of 10, fever, temperature greater than 38 C, Starting on Fri12/14/21 at 1402, For 1 dose documented in this encounter Care Teams Spanish Tutor Relationship Specialty Start Date End Date Elsewhere, Pcp PCP - General Family Medicine 06/30/17 documented as of this encounter
--- OUTSIDE RECORDS SUMMARY | 2022-03-08 15:45 | XMS_ITS | Encounter Summary ---
:1980 Author Organization [facility] Address [address] [place] [address] Care Team Providers Name Role Phone Elsewhere, Pcp Primary Care Provider Unavailable Reason for Visit Reason Onset Date Comments Referral 08/12/2017 Encounter Details Date Type Department Care Team Description 08/12/2017 Clinical Communication Department of [facility] Janie Hanks M.D. [address], [id number] [place] [id number] Social History Tobacco Use Types Packs/Day Years Used Date Smoking Tobacco: Never Smokeless Tobacco: Never Alcohol Use Standard Drinks/Week Comments No 0 (1 standard drink = 0.6 oz pure alcoho l) Sex Assigned at Date Recorded Not on file documented as of this encounter Miscellaneous Notes Telephone Encounter - Janie Hanks M.D. - 08/12/2017 5:43 PM CDT Please call. Order for GI consultation is in EHR. Telephone Encounter - Bharati Avalos L.PJennyNJenny - 08/12/2017 2:41 PM CDT Patient agrees to see GI in [place]. Please place order. Patient is aware that [place] will contact him directly to schedule. Telephone Encounter - Liv Maki - 08/12/2017 1:52 PM CDT Patient calling about the referral for the GI specialist in [place]. Please call back to update status of this. documented in this encounter Plan of Treatment Not on filedocumented as of this encounter Visit Diagnoses Diagnosis Inflammatory Bowel Disease - Primary documented in this encounter Care Teams Architecture Department Chair Relationship Specialty Start Date End Date Elsewhere, Pcp PCP - General Family Medicine 06/30/17 documented as of this encounter
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
--- OUTSIDE RECORDS SUMMARY | 2022-03-08 15:45 | XMS_ITS | Encounter Summary ---
:1980 Author Organization [facility] Address [address] [place] [address] Care Team Providers Name Role Phone Elsewhere, Pcp Primary Care Provider Unavailable Reason for Visit Reason Comments Communication Encounter Details Date Type Department Care Team Description 06/30/2017 Clinical Communication Department of [facility] Medicine in A, PBT( CP) [place], [place] [address] [place] [address] [phone] Social History Tobacco Use Types Packs/Day Years Used Date Smoking Tobacco: Never Smokeless Tobacco: Never Alcohol Use Standard Drinks/Week Comments No 0 (1 standard drink = 0.6 oz pure alcoho l) Sex Assigned at Date Recorded Not on file documented as of this encounter Miscellaneous Notes Telephone Encounter - Bharati Avalos, LJennyP.N. - 07/04/2017 1:09 PM CST Patient notified of Troponin results please refer to result note dated 06/30/2017. TS PHYSIOLOGIST Telephone Encounter - Vielka Morrison - 07/04/2017 12:30 PM CST Pt called returning call to nurse. Please call back. TS PHYSIOLOGIST documented in this encounter Plan of Treatment Not on filedocumented as of this encounter Visit Diagnoses Not on filedocumented in this encounter Care Teams Er Physician Relationship Specialty Start Date End Date Elsewhere, Pcp PCP - General Family Medicine 06/30/17 documented as of this encounter
--- OUTSIDE RECORDS SUMMARY | 2022-03-08 15:45 | XMS_ITS | Encounter Summary ---
:1980 Author Organization [facility] Address [address] [place] [address] Care Team Providers Name Role Phone Elsewhere, Pcp Primary Care Provider Unavailable Encounter Details Date Type Department Care Team Description 07/09/2017 Orders Only Department of Janie Hanks M.D . Hypercalcemia (Primary Community Internal [address], Dx) Medicine in [address] [address] [place] [address] Social History Tobacco Use Types Packs/Day Years Used Date Smoking Tobacco: Never Smokeless Tobacco: Never Alcohol Use Standard Drinks/Week Comments No 0 (1 standard drink = 0.6 oz pure alcoho l) Sex Assigned at Date Recorded Not on file documented as of this encounter Plan of Treatment Not on filedocumented as of this encounter Visit Diagnoses Diagnosis Hypercalcemia - Primary documented in this encounter Care Teams Flamer After Lasting Relationship Specialty Start Date End Date Elsewhere, Pcp PCP - General Family Medicine 06/30/17 documented as of this encounter
--- OUTSIDE RECORDS SUMMARY | 2022-03-08 15:45 | XMS_ITS | Encounter Summary ---
:1980 Author Organization [facility] Address [address] [place] [address] Care Team Providers Name Role Phone Elsewhere, Pcp Primary Care Provider Unavailable Reason for Visit Reason Onset Date Comments (K52.89) Inflammatory Bowel Disease (IBD) 09/22/2017 Order to [facility] Encounter Details Date Type Department Care Team Description 09/22/2017 Clinical Department of Janie Hanks, (K52.89) Communication Family MedicineDari[place] Inflammatory Bowel [facility], [address] Disease (I BD) in [facility], [facility] 204 (Order to [facility]) [address] [address] [place], [place] [phone] [address] (Fax) [phone] Social History Tobacco Use Types Packs/Day Years Used Date Smoking Tobacco: Never Smokeless Tobacco: Never Alcohol Use Standard Drinks/Week Comments No 0 (1 standard drink = 0.6 oz pure alcoho l) Sex Assigned at Date Recorded Not on file documented as of this encounter Miscellaneous Notes Telephone Encounter - Crystal Sousa - 09/22/2017 12:42 PM CDT Good Afternoon, Thank you for your referral. At the time of this original referral, we did not have any appointment availability in the Department of Gastroenterology. The patient has been instructed to call periodically to check for appointments. The patient has not contacted us back to check for openings so we have closed the request. If the patient does call our office back periodically, we will be happy to re- open this request. If you have questions, please call us at [phone] or [phone]. You may also reply to this message. Sincerely, [facility] Online Services for Referring Physicians Appointment Office documented in this encounter Plan of Treatment Not on filedocumented as of this encounter Visit Diagnoses Not on filedocumented in this encounter Care Teams Stick Inserter Relationship Specialty Start Date End Date Elsewhere, Pcp PCP - General Family Medicine 06/30/17 documented as of this encounter
--- OUTSIDE RECORDS SUMMARY | 2022-03-08 15:45 | XMS_ITS | Encounter Summary ---
:1980 Author Organization [facility] Address [address] [place] [address] Care Team Providers Name Role Phone Elsewhere, Pcp Primary Care Provider Unavailable Reason for Visit Reason Comments Communication Encounter Details Date Type Department Care Team Description 07/11/2017 Clinical Communication Department of [facility], Pcp Communication Medicine, [facility], in [place], [place] [address] [address] Social History Tobacco Use Types Packs/Day Years Used Date Smoking Tobacco: Never Smokeless Tobacco: Never Alcohol Use Standard Drinks/Week Comments No 0 (1 standard drink = 0.6 oz pure alcoho l) Sex Assigned at Date Recorded Not on file documented as of this encounter Miscellaneous Notes Telephone Encounter - Mylene Gerardo, RJennyN. - 07/11/2017 3:16 PM CST Lab results given to patient. [employer] Telephone Encounter - Yoli Vang - 07/11/2017 1:46 PM CST Patient called back to Mari ordaz to reach nurse please call him back [employer] documented in this encounter Plan of Treatment Not on filedocumented as of this encounter Visit Diagnoses Not on filedocumented in this encounter Care Teams Carton Filler Relationship Specialty Start Date End Date Elsewhere, Pcp PCP - General Family Medicine 06/30/17 documented as of this encounter
--- OUTSIDE RECORDS SUMMARY | 2022-03-08 15:45 | XMS_ITS | Encounter Summary ---
:1980 Author Organization [facility] Address [address] [place] [address] Care Team Providers Name Role Phone Elsewhere, Pcp Primary Care Provider Unavailable Reason for Visit Reason Comments Triage Encounter Details Date Type Department Care Team Description 12/18/2021 Clinical Communication Division of General Prescheduli ng, Triage Internal Medicine in [place], [place] [address] [place] [address] Social History Tobacco Use Types Packs/Day Years Used Date Smoking Tobacco: Never Smokeless Tobacco: Never Alcohol Use Standard Drinks/Week Comments No 0 (1 standard drink = 0.6 oz pure alcoho l) Sex Assigned at Date Recorded Not on file documented as of this encounter Miscellaneous Notes Telephone Encounter - Donna Rico - 12/18/2021 7:09 AM CDT Sam Foss 1980 [phone] years Gender: Male Who filled out ARF: Patient Request: I have medical symptoms without a clear diagnosis MAIN SYMPTOM weakness, tightness and loss of feeling in extremities, worse in the left arm and left leg Description: symptoms began 6 months ago with burning, and weakness in face and jaw then progressed to back and of head with headaches and then down my spine with skin vesicles forming looking similar to acne. But preceded down the spine with burning and tingling. eventually going down in the both legs still forming small itching bumps on skin the. Area would eventually lead to burning and tightness. The skin sores left but now my legs and arms and weak and shake with some twitching. As of late it has been progressing more rapidly into a tightness/weakness and loss of motor control mostly on my left side. When s tanding I put most of my weight on my right leg since my left leg is weak. As of the last 2 weeks mylymph nodes in neck and left jaw is more sore. Duration: Less than 6 months Previous Eval: Yes Institution: [facility] Neu[facility] Have had: Images (X-Rays, CT scan, MRI scan, etc.), Blood or urine tests Diagnosis: Outcome: neurologist thought possible systemic shingles referred to infectious disease. Saw rn resource nurse before neurologist she thought is was maybe a virus but not sure. Had a PCR for one of the vesicles neg for shingles. Infectious disease had no plan follow up with primary. Primary sent me to neurologist still waiting for that appointment but overall no diagnosis or treatment. Expectations: try to determine cause of burning, tingling and weakness and stop or slow down the progression so I can function. ADDITIONAL - 1 Description: Duration: Previous Eval: Institution: Have had: Diagnosis: Outcome: Expectations: ADDITIONAL - 2 Description: Duration: Previous Eval: Institution: Have had: Diagnosis: Outcome: Expectations: ADDITIONAL - 3 Description: Duration: Previous Eval: Institution: Have had: Diagnosis: Outcome: Expectations: ADDITIONAL - 4 Description: Duration: Previous Eval: Institution: Have had: Diagnosis: Outcome: Expectations: ADDITIONAL CONCERNS: LIFESTYLE MEDICINE CONSULTATION: No CONDITIONS: Pain, Fatigue BOTHERED BY: Feeling nervous, anxious or on edge - Not being able to control or stop worrying - Little interest or pleasure in doing things - Feeling down, depressed, or helpless - Willing to speak to a mental health professional - PAIN LONGER THAN 3 MONTHS: Yes CARE PROVIDERS TO DATE: 5 or more LOWEST PAIN LAST 7 DAYS (0 to 10): 3 PAIN INTERFERENCE PAST 3 MONTHS (0 to 10): 6 PAIN AREAS: JAW, NECK, Upper BACK, CHEST, ABDOMEN, Lower BACK, Left Upper ARM, Left Lower ARM, Left HIP, Left Upper LEG, Left Lower LEG FATIGUE A MAIN REASON FOR VISIT: No FATIGUE/HOW LONG: PROBLEMS WITH SLEEP: SLEEP PROBLEMS LAST 2 WEEKS: SLEEP APNEA DIAGNOSIS: Willing to attend [facility] or [facility] appointments - Probably yes DAILY MEDS: 4 OPIOIDS: No CURRENT DIALYSIS: No CURRENT HEALTH/PAST YEAR: Fair CONFIDENCE: Agree NOT AVAILABLE: 12-25-21 through 01-01-22 PHONE: [phone] documented in this encounter Plan of Treatment Not on filedocumented as of this encounter Visit Diagnoses Not on filedocumented in this encounter Care Teams Professor Of Literature Relationship Specialty Start Date End Date Elsewhere, Pcp PCP - General Family Medicine 06/30/17 documented as of this encounter
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
--- OUTSIDE RECORDS SUMMARY | 2022-03-08 15:45 | XMS_ITS | Encounter Summary ---
:1980 Author Organization [facility] Address [address] [place] [address] Care Team Providers Name Role Phone Unavailable Primary Care Provider Unavailable Encounter Details Date Type Department Care Team Description 07/19/2008 Hospital Encounter HX [facility] LAB Provider, Historic al Social History Tobacco Use Types Packs/Day Years Used Date Smoking Tobacco: Never Assessed Sex Assigned at Date Recorded Not on file documented as of this encounter Plan of Treatment Not on filedocumented as of this encounter Visit Diagnoses Not on filedocumented in this encounter
--- OUTSIDE RECORDS SUMMARY | 2022-03-08 15:45 | XMS_ITS | Encounter Summary ---
:1980 Author Organization [facility] Address [address] [place] [address] Care Team Providers Name Role Phone Elsewhere, Pcp Primary Care Provider Unavailable Encounter Details Date Type Department Care Team Description 07/01/2017 Orders Only Department of Janie Hanks M.D . Hypernatremia (Primary Community Internal [address], Dx) Medicine in [address] [address] [place] [address] Social History Tobacco Use Types Packs/Day Years Used Date Smoking Tobacco: Never Smokeless Tobacco: Never Alcohol Use Standard Drinks/Week Comments No 0 (1 standard drink = 0.6 oz pure alcoho l) Sex Assigned at Date Recorded Not on file documented as of this encounter Plan of Treatment Not on filedocumented as of this encounter Results (ABNORMAL) BMP (Basic Metabolic Panel) (07/08/2017 8:50 AM LAUNCH ENGINEER) P athologist Signature Potassium, S 4.7 3.6 - 5.2 07/08/2017 [facility] mmol/L 12:11 PM [facility] Sodium, S 143 135 - 145 07/08/2017 [facility] mmol/L 12:11 PM [facility] Chloride, S 101 98 - 107 07/08/2017 [facility] mmol/L 12:11 PM [facility] Bicarbonate, S 28 22 - 29 07/08/2017 [facility] mmol/L 12:11 PM [facility] Anion Gap 14 7 - 15 07/08/2017 [facility] 12:11 PM [facility] BUN (Blood Urea 18 8 - 24 07/08/2017 [facility] Nitrogen), S mg/dL 12:11 PM [facility] Creatinine 0.86 0.74 - 07/08/2017 [facility] 1.35 mg/dL 12:11 PM [facility] eGFR >90 >=60 07/08/2017 [facility] Non-Black/Afric mL/min/BSA 12:11 PM [facility] TEM- an Afghan [employer] [employer] LAB Comment: ----ADDITIONAL INFORMATION---- Estimated GFR calculated using the 2009 CKD_EPI creatinine equation. eGFR Black/ >90 >=60 mL/min/BSA 07/08/2017 12:1 1 PM [facility] Comment: ----ADDITIONAL INFORMATION---- Estimated GFR calculated using the 2009 CKD_EPI creatinine equation. Calcium, Total, S 10.5 (H) 8.9 - 10.1 mg/dL 07/08/2017 1 2:11 PM [facility] Glucose, S 64 (L) 70 - 140 mg/dL 07/08/2017 12:11 PM [facility] Specimen Anatomical Collection Method Collection Time Receive d Time (Source) Location / / Volume Laterality Blood 07/08/2017 8:50 AM 8 LAUNCH ENGINEER 10:58 AM LAUNCH ENGINEER Janie Hanks M.D. LAB BLOOD ADD-ON Performing Organization Address City/State/ZIP Code Phon e Number [facility] Systems[facility] [address] [place] [address] LAB documented in this encounter Visit Diagnoses Diagnosis Hypernatremia - Primary documented in this encounter Care Teams Cash Applications Manager Relationship Specialty Start Date End Date Elsewhere, Pcp PCP - General Family Medicine 06/30/17 documented as of this encounter
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
--- OUTSIDE RECORDS SUMMARY | 2022-03-08 15:45 | XMS_ITS | Encounter Summary ---
:1980 Author Organization [facility] Address [address] [place] [address] Care Team Providers Name Role Phone Elsewhere, Pcp Primary Care Provider Unavailable Encounter Details Date Type Department Care Team Description 07/08/2017 Hospital Encounter Department of Janie Hanks M.D. Hypernatremia Laboratory Medicine in [address] [place] [address] [address] [place] [address] [place] [address] Social History Tobacco Use Types Packs/Day Years Used Date Smoking Tobacco: Never Smokeless Tobacco: Never Alcohol Use Standard Drinks/Week Comments No 0 (1 standard drink = 0.6 oz pure alcoho l) Sex Assigned at Date Recorded Not on file documented as of this encounter Medications at Time of Discharge Medication Sig Dispensed Refills Start Date End Date hydrOXYzine (for_ATARAX) Take 1 tablet (25 mg 60 tablet 0 0 06/30/2017 07/29/2017 25 mg tablet total) by mouth every 6 (six) hours as needed for itching or allergies. documented as of this encounter Progress Notes Janie Hanks M.D. - 07/08/2017 11:59 PM CST Please call him. Electrolytes are OK except for high calcium.Glucose is low. We need to recheck in 1week. Order is in EHR. How's he doing? ICE ASSOCIATE Bharati Avalos L.P.N. - 07/08/2017 11:59 PM CST Left message for patient to return my call. ICE ASSOCIATE Mylene Gerardo RSharri. - 07/08/2017 11:59 PM CST Spoke with patient and lab results given. He notes he is feeling ok, best he has felt since getting bitten by a jellyfish. He said he will call and make an appointment for labs next week. ICE ASSOCIATE documented in this encounter Plan of Treatment Not on filedocumented as of this encounter Procedures Procedure Name Priority Date/Time Associated Diagnosis Comme nts BASIC METABOLIC Routine 07/08/2017 8:50 AM Hypernatremia Resul ts for this PANEL, S/P SERVICE ASSOCIATE procedure are i n the results section. documented in this encounter Results (ABNORMAL) BMP (Basic Metabolic Panel) (07/08/2017 8:50 AM SERVICE ASSOCIATE) P athologist Signature Potassium, S 4.7 3.6 - 5.2 07/08/2017 [facility] mmol/L 12:11 PM [facility] (III) [facility] LAB Sodium, S 143 135 - 145 07/08/2017 [facility] mmol/L 12:11 PM [facility] (III) [facility] LAB Chloride, S 101 98 - 107 07/08/2017 [facility] mmol/L 12:11 PM [facility] (III) [facility] LAB Bicarbonate, S 28 22 - 29 07/08/2017 [facility] mmol/L 12:11 PM [facility] (III) [facility]AT[facility] LAB Anion Gap 14 7 - 15 07/08/2017 [facility] 12:11 PM [facility] (III) [facility] ManagementAT[facility] LAB BUN (Blood Urea 18 8 - 24 07/08/2017 [facility] Nitrogen), S mg/dL 12:11 PM [facility] [place] [facility] Creatinine 0.86 0.74 - 07/08/2017 [facility] 1.35 mg/dL 12:11 PM [facility] (III) [facility] LAB eGFR >90 >=60 07/08/2017 [facility] Non-Black/Afric mL/min/BSA 12:11 PM SERVICE ASSOCIATE [facility]- an [place] [facility] (III) [facility] ManagementAT[employer] LAB Comment: ----ADDITIONAL INFORMATION---- Estimated GFR calculated using the 2009 CKD_EPI creatinine equation. eGFR Black/ >90 >=60 mL/min/BSA 07/08/2017 12:[address] [facility] [place] [facility] Comment: ----ADDITIONAL INFORMATION---- Estimated GFR calculated using the 2009 CKD_EPI creatinine equation. Calcium, Total, S 10.5 (H) 8.9 - 10.1 mg/dL 07/08/2017 1 2:11 PM [facility] (III) [facility] Management[facility] LAB Glucose, S 64 (L) 70 - 140 mg/dL 07/08/2017 12:11 PM [facility] [place] [facility] Specimen Anatomical Collection Method Collection Time Receive d Time (Source) Location / / Volume Laterality Blood 07/08/2017 8:50 AM 8 SERVICE ASSOCIATE 10:58 AM SERVICE ASSOCIATE Janie Hanks M.D. LAB BLOOD ADD-ON Performing Organization Address City/State/ZIP Code Phon e Number [facility] [place] [address] [place] [address] LAB documented in this encounter Visit Diagnoses Diagnosis Hypernatremia documented in this encounter Care Teams Cso Relationship Specialty Start Date End Date Elsewhere, Pcp PCP - General Family Medicine 06/30/17 documented as of this encounter
--- OUTSIDE RECORDS SUMMARY | 2022-03-08 15:45 | XMS_ITS | Encounter Summary ---
:1980 Author Organization [facility] Address [address] [place] [address] Care Team Providers Name Role Phone Elsewhere, Pcp Primary Care Provider Unavailable Encounter Details Date Type Department Care Team Description 07/30/2018 Clinical Communication Department of [facility], Pcp Medicine, [facility], in [place], [place] [address] [place] [address]5 [facility] [phone] Social History Tobacco Use Types Packs/Day Years Used Date Smoking Tobacco: Never Smokeless Tobacco: Never Alcohol Use Standard Drinks/Week Comments No 0 (1 standard drink = 0.6 oz pure alcoho l) Sex Assigned at Date Recorded Not on file documented as of this encounter Miscellaneous Notes Telephone Encounter - Dominic Daniel V., C.M.A. - 08/06/2018 8:[address] ROLLER ENGINEER SUBJECTIVE CHIEF COMPLAINT / REASON FOR CALL No chief complaint on file. INFORMATION DISCUSSED Attempted to contact the patient in regards to the medication. This is the fourth and final attempt to reach the patient. Will await a return call. PLAN Disposition/Recommendation: N/A Information: patient/caller able to repeat back in their own words Caller agreeable to plan of care: yes The following references were used: none ET ROLLER ENGINEER Telephone Encounter - Korin Mayo L.P.N. - 08/04/2018 9:[address] ROLLER ENGINEER Message left for patient to return my call. ET ROLLER ENGINEER Telephone Encounter - Dominic Daniel C.MJaden - 08/03/2018 3:[address] ROLLER ENGINEER Attempted to contact patient and left a voicemail with call back number. ET ROLLER ENGINEER Telephone Encounter - Kayleigh Freeman L.P.N. - 07/31/2018 10:05 AM CST Attempt to contact patient. No answer, left message to return call to clinic. ET ROLLER ENGINEER Telephone Encounter - Felecia Link C.MJaden - 07/30/2018 4:19 PM CST This was the frequency this was written back on 09/12/17, I have left a message for the patient to call back due to this was written almost a year ago and was only for a week like to know if patient requested this Sig: Take 1 tablet (1,000 mg total) by mouth 2 (two) times a day for 7 days. ET ROLLER ENGINEER Telephone Encounter - Miriam Darling - 07/30/2018 3:37 PM CST Please confirm frequency with patient ET ROLLER ENGINEER Telephone Encounter - Samira Posada - 07/30/2018 12:45 PM CST Name of Medication: Valacryclovir Provider: олег brown Strength: 1000mg Frequency: Pharmacy (include Location): [facility] ROLLER ENGINEER documented in this encounter Plan of Treatment Not on filedocumented as of this encounter Visit Diagnoses Not on filedocumented in this encounter Care Teams Script Developer Relationship Specialty Start Date End Date Elsewhere, Pcp PCP - General Family Medicine 06/30/17 documented as of this encounter
== END 2022-03-08 16:04 | disposition home or self-care (01) ==
LOC: ED 15:43
PROVIDERS: Emergency Provider Emergency Medicine Emergency Medical Services
DX: L30.9 Dermatitis, unspecified (principal)
CPT/HCPCS: 99283; 99284